=== PATIENT | female | born 1950 | race Caucasian/White ===

== ENCOUNTER → 2017-01-26 | Outpatient (CLI) | payer OTHER, BC | LOC: BMCIMAGING 09:21 | PROVIDERS: ATTEND Family Medicine | DX: Z12.31 Encounter for screening mammogram for malignant neoplasm of breast (principal) | CPT/HCPCS: G0202 ==

== ENCOUNTER → 2017-03-15 | Outpatient (CLI) | payer OTHER | LOC: FIMAGING 17:22 | PROVIDERS: ATTEND Registered Nurse | DX: M79.661 Pain in right lower leg (principal) ==

== ENCOUNTER → 2017-11-19 | Outpatient (CLI) | payer OTHER | LOC: FIMAGING 07:31 | PROVIDERS: ATTEND Family Medicine | DX: R10.11 Right upper quadrant pain (principal); E78.00 Pure hypercholesterolemia, unspecified; E78.5 Hyperlipidemia, unspecified; R74.0 Nonspecific elevation of levels of transaminase and lactic acid dehydrogenase [LDH] | CPT/HCPCS: 82172-90 ==

== ENCOUNTER → 2018-01-21 | Outpatient (CLI) | payer OTHER | LOC: FIMAGING 15:57 | PROVIDERS: ATTEND Internal Medicine Pulmonary Disease | DX: R91.8 Other nonspecific abnormal finding of lung field (principal); R05 Cough; R09.89 Other specified symptoms and signs involving the circulatory and respiratory systems; M47.814 Spondylosis without myelopathy or radiculopathy, thoracic region; I70.0 Atherosclerosis of aorta ==

== ENCOUNTER → 2018-02-07 | Outpatient (CLI) | payer OTHER | END | disposition home or self-care (01) | LOC: BMCIMAGING 10:24 | PROVIDERS: ATTEND Family Medicine | DX: M81.0 Age-related osteoporosis without current pathological fracture (principal); M43.8X4 Other specified deforming dorsopathies, thoracic region; Z78.0 Asymptomatic menopausal state; Z79.52 Long term (current) use of systemic steroids ==

== ENCOUNTER → 2018-02-10 | Outpatient (CLI) | payer OTHER | LOC: FIMAGING 14:01 | PROVIDERS: ATTEND Internal Medicine Pulmonary Disease | DX: R91.8 Other nonspecific abnormal finding of lung field (principal); N20.0 Calculus of kidney ==

== ENCOUNTER → 2018-02-14 | Outpatient (CLI) | payer OTHER | LOC: BMCIMAGING 15:19 | PROVIDERS: ATTEND Family Medicine | DX: Z12.31 Encounter for screening mammogram for malignant neoplasm of breast (principal) ==

== ENCOUNTER → 2018-06-06 | Outpatient (CLI) | payer OTHER | LOC: BHFA 13:15 | PROVIDERS: ATTEND Internal Medicine Cardiovascular Disease | DX: R06.09 Other forms of dyspnea (principal) ==

== ENCOUNTER → 2018-07-25 | Outpatient (CLI) | payer OTHER | LOC: FIMAGING 10:51 ==